=== PATIENT | female | born 1980 | race Caucasian/White ===

== ENCOUNTER 2022-07-21 18:21 | Emergency (ER) | payer SELFPAY ==
--- OUTSIDE RECORDS SUMMARY | 2022-07-21 18:25 | XMS REPORT | Continuity of Care Document ---
:1980 Author Organization [facility] t Address [address] [place] [address] Care Team Providers Name Role Phone Linnea Coley Attending Clinician Unavailable Physician, No Primary or Family Admitting Clinician Unavaila ble Payers Payer Name Policy Type Policy Number Effective Date Expiration Date S ource Problems This patient has no known problems. Allergies, Adverse Reactions, Alerts Allergy Allergy Status Severity Reaction(s) Onset Inactive Treating Comm ents Source Name Type Date Date Clinician No Known DA Active U [facility] Allergie 05-02 [facility] 00:00: [facility] 00 are [place] Medications This patient has no known medications. Procedures This patient has no known procedures. Encounters Start End Encounter Admission Attending Care Care Encounter Source Date/Time Date/Time Type Type Clinicians Facility Department ID 2022-05-02 2022-05-02 Emergency EM SKY Coley [id number] [facility] 05:12:00 08:20:[address] are [place] 2022-05-02 2022-05-02 Emergency EM SKY Coley [id number] [facility] 05:12:00 08:20:00 Linnea 81 [facility] are [place] 2022-05-02 2022-05-02 Emergency EM SKY Coley [id number] [id number] [facility] 05:12:00 05:12:00 Linnea El16 [facility] are [place] Results Test Description Test Time Test Comments Results Result Comments Source URINALYSIS COMPLETE 2022-05-02 07:59:00 Test Item Value Reference Range Interpretation Comme nts UA COLOR (test code = COLU) Colorless YELLOW UA APPEARANCE (test code = CLEAR CLEAR APPU) UA GLUCOSE DIPSTICK (test code NEG MG/DL NEGATIVE = DGLUU) UA BILIRUBIN DIPSTICK (test NEG NEGATIVE code = BILU) UA KETONE DIPSTICK (test code NEG MG/DL NEGATIVE = KETU) UA SPECIFIC GRAVITY (test code 1.007 1.000-1.030 = SGU) UA BLOOD DIPSTICK (test code = 1+ NEGATIVE A JAMES) UA PH DIPSTICK (test code = 7.5 4.5-8.5 BASSAM) UA PROTEIN DIPSTICK (test code NEG MG/DL NEGATIVE = PROU) UA UROBILINOGEN DIPSTICK (test NORMAL EU/dL See_Comment [Automated message] The code = URO) system which ge nerated this result transmit abbi reference range: <=1.0. T he reference range was not u sed to interpret this result as normal/abnormal . UA NITRITE DIPSTICK (test code NEG NEGATIVE = MARY) UA LEUKOCYTE ESTERASE DIPSTICK NEG NEGATIVE (test code = LEUU) UA WBC (test code = WBCU) 0-3 /HPF 0-3 UA RBC (test code = RBCU) 5-10 /HPF 0-3 A UA BACTERIA (test code = BACU) 1+ /HPF NONE SEEN A UA SQUAMOUS CELLS (test code = RARE /HPF NONE-FEW SQU) UA CRYSTALS OTHER (test code = RARE /HPF NONE SEEN CRYU) UA MUCUS (test code = MUCU) RARE /LPF NONE-FEW UR HCG [id number] 07:52:00 Test Item Value Reference Range Interpretation Comments UR HCG QUAL (test code = HCGQLU) NEGATIVE NEGATIVE - CT HEAD/BRAIN W/O [id number] 06:37:00 [facility] : 1980 Sex: FPatient Name: SAIMA SR Unit No: [id number] EXAMS: CPT: [id number] CT HEAD/BRAIN W/O CONT [id number] CT HEAD WITHOUT CONTRAST, 05/02/2022. COMPARISON:None. CLINICAL: Dizziness. Comment: Noncontrast transaxial plus sagittal/coronal reformatted images were obtained. The lateral, third and fourth ventricles appear within normal limits. There is no midline shift, acute intraparenchymal hemorrhage, major territorial infarction or extracerebral fluid collection. The calvarium is intact. There is extensive partial opacification of the paranasal sinuses consistent with pansinusitis. The mastoids are well pneumatized. No air-fluid levels are detected. All CT scans at this facility are performed using dose optimization t echniques including the following: Automated exposure control. IMPRESSION: No evidence of acute intracranial hemorrhage. at 0637 Reported and signed by: Tunde Merino MD CC: Linnea Coley MD Technologist: Abby Momin CTDI: 40.74 DLP: 713.34 Trscr Dt/Tm: 05/02/2022 (0637) by:[email or web address] Orig Print D/T: S: 05/02/2022 (0640) BATCH NO: N/A Name: SAIMA SR [facility] [place] Phys: Linnea Robert [address] [facility] : 1980 Age: 42 Sex: F [facility]argav Levi [facility] [id number] [facility] Exam Date: 05/02/2022 Status: REGER PH: FAX: PAGE 1 Signed Report- CT HEAD/BRAIN W/O [id number] 06:37:00 [facility] : 1980 Sex: FPatient Name: SAIMA SR Unit No: [id number] EXAMS: CPT: [id number] CT HEAD/BRAIN W/O CONT [id number] CT HEAD WITHOUT CONTRAST, 05/02/2022. COMPARISON:None. CLINICAL: Dizziness. Comment: Noncontrast transaxial plussagittal/coronal reformatted images were obtained. The lateral, third and fourth ventricles appear within normal limits. There is no midline shift, acute intraparenchymal hemorrhage, major territorial infarction or extracerebral fluid collection. The calvarium is intact. There is extensive partial opacification of the paranasal sinuses consistent with pansinusitis. The mastoids are well pneumatized.No air-fluid levels are detected. All CT scans at this facility are performed using dose optimization techniques including the following: Automated exposure control. IMPRESSION: No evidence of acute intracranial hemorrhage. at 0637 Reported and signed by: Tunde Merino MD CC: Linnea Coley MD Technologist: Abby Momin CTDI: 40.74DLP: 713.34 Trscr Dt/Tm: 05/02/2022 (0637) by:[email or web address] Orig Print D/T: S: 05/02/2022 (0640) BATCHNO: N/A Name: SAIMA SR [facility] [place] Phys: Linnea Robert [address] [facility] : 1980 Age: 42 Sex: F Bhargav Levi Loc: T.ERS Exam Date: 05/02/2022 Status: DEP ER PH: FAX: PAGE 1 Signed ReportCOMPREHENSIVE METABOLIC [id number] 06:17:00 Test Item Value Reference Range Interpretation Comments SODIUM (test code = 140 mmol/L 136-145 N NA) POTASSIUM (test 3.5 mmol/L 3.4-4.5 N code = K) CHLORIDE (test code 108 mmol/L 98-107 H = CL) CARBON DIOXIDE 22 mmol/l 20-31 N (test code = CO2) GLUCOSE (test code 120 mg/dL 74-106 H = GLU) BLOOD UREA NITROGEN 8 mg/dL 9-23 L (test code = BUN) GLOMERULAR >=60 max >60 The estimated FILTRATION RATE estimate glomerular (test code = GFR) filtration rate is computed usingpatient ra ce, age (>18), sex, and serum creatinin e. If anyof the ne eded data elements a re missing the Laboratory felicitas ot compute an estimation of t he glomerular filtration rate . CREATININE (test 0.70 mg/dL 0.55-1.02 N code = CREAT) TOTAL PROTEIN (test 7.0 g/dL 5.7-8.2 N code = PROT) ALBUMIN (test code 3.8 g/dl 3.4-5.0 N = ALB) CALCIUM (test code 9.1 mg/dL 8.6-10.3 N = CA) BILIRUBIN TOTAL 0.5 mg/dL 0.3-1.2 N (test code = BILT) SGOT/AST (test code 20 U/L 0-34 N = AST) SGPT/ALT (test code 13 U/L 10-49 N = ALT) ALKALINE 84 U/L 46-116 N PHOSPHATASE (test code = ALKP) [id number] 06:17:00 Test Item Value Reference Range Interpretation Comments LIPASE (test code = LIP) 33 U/L 12-53 N [id number] 06:17:00 Test Item Value Reference Range Interpretation Comments TROPONIN-I < 2.5 ng/L 0.0-34.0 N CAUTION: UNITS OF THE (test code = CURRENT TEST ME THODOLOGY TROPI) (ng/L) DIFFERFR OM THE PRIOR TEST METHODOLOG Y (ng/mL) BY A FACTOR OF 100 0.RESULTS FROM DIFFERENT METHODS SHOULD NOT BE C OMPARED TO ONEANOTHER Q UANTITATIVE RESULTS AND URL S MAY VARY BY METHOD. IN OR CHA TO DISTINGUISH ACU TE ELEVATIONS OF HIGH SENSITI VETROPONIN FROM OTHER CLIN ICAL CONDITIONS, THE UNIVERSALDEFINI TION OF MYOCARDIAL INFA RCTION STRESSES CLINIC ALASSESSMENT AND THE NEED FO R SERIAL MEASUREMENTS TO OBSERVE ARISE AND/OR FA LL ABOVE THE UPPER LIMIT OF THE REFERENCERANGE. CONSIDERATION F OR CARDIOLOGY EVALUATION AND DRAWINGTHIRD hs-cTn, INCLUDI NG IF CHANGE IN THE CLINICAL STATUS ORSERIAL hs-cTn s ARE INCREASING, PAR TICULARLY ABOVE THE 99THGENDER-SPEC IFIC PERCENTILE. CBC W/AUTO [id number] 06:00:00 Test Item Value Reference Range Interpretation Comments WHITE BLOOD CELL (test code = WBC) 5.92 K/mm3 5.0-12.0 N RED BLOOD CELL (test code = RBC) 4.49 M/mm3 4.20-5.40 N HEMOGLOBIN (test code = HGB) 12.9 G/DL 12.0-16.0 N HEMATOCRIT (test code = HCT) 38.7 % 34.9-44.5 N MEAN CELL VOLUME (test code = MCV) 86 fL 81-99 N MEAN CELL HGB (test code = MCH) 28.7 PGM 27-31 N MEAN CELL HGB CONCENTRATION (test 33.3 G/DL 33-37 N code = MCHC) RED CELL DISTRIBUTION WIDTH (test 13.5 % 11.6-16.2 N code = RDW) PLATELET COUNT (test code = PLT) 247 K/mm3 130-400 N MEAN PLATELET VOLUME (test code = 10.0 fl 7.4-10.4 N MPV) NEUTROPHIL % (test code = NT%) 49.1 % 43-65 N IMMATURE GRANULOCYTE % (test code 0.2 % 0.0-2.0 N = IG%) LYMPHOCYTE % (test code = LY%) 36.5 % 20.5-45.5 N MONOCYTE % (test code = MO%) 6.6 % 5.5-11.7 N EOSINOPHIL % (test code = EO%) 7.1 % 0.9-2.9 H BASOPHIL % (test code = BA%) 0.5 % 0.2-1.0 N NUCLEATED RBC % (test code = 0.0 % 0-1.0 N NRBC%) NEUTROPHIL # (test code = NT#) 2.91 K/mm3 2.2-4.8 N LYMPHOCYTE # (test code = LY#) 2.16 K/mm3 1.3-2.9 N MONOCYTE # (test code = MO#) 0.39 K/mm3 0.3-0.8 N EOSINOPHIL # (test code = EO#) 0.42 K/MM3 0.0-0.2 H BASOPHIL # (test code = BA#) 0.03 K/mm3 0.0-0.1 N
[2022-07-21] MEDS ORDERED: FENTANYL CITR 100 MCG/2 ML ONE (18:42)
[2022-07-21] MEDS ORDERED: PROMETHAZINE INJ 25 MG/ML AMP ONE (18:42)
[2022-07-21 19:02] LABS: Absolute Lymphocytes (CBC) 1.3 K/uL (0.7-4.9); Lymphocytes % 12.9 % (15.3-44.8); MCV 86.3 fL (80-100)
[2022-07-21 19:18] LABS: ALT/SGPT 26 U/L (12-78); Albumin 3.4 g/dL (3.4-5.0); Alkaline Phosphatase 85 U/L (45-117); BUN Blood Urea Nitrogen 16 mg/dL (7-18); Bicarbonate 25 mmol/L (21-32); Bilirubin Total 0.2 mg/dL (0.2-1.0); Glomerular Filtration Rate 80 ml/min (=/>90); Glucose Level 140 mg/dL (74-106); Protein, Total 7.5 g/dL (6.4-8.2); Sodium Level 138 mmol/L (136-145)
[2022-07-21 19:20] LABS: AST/SGOT 21 U/L (15-37); C-Reactive Protein < 2.90 mg/L (<3.00); Potassium 3.5 mmol/L (3.5-5.1)
--- NOTE | 2022-07-21 19:25 | RAD REPORT ---
EXAM DESCRIPTION: RAD - Knee Left 2 View - 07/21/2022 6:49 pm CLINICAL HISTORY: Knee pain FINDINGS: Comminuted patellar fracture. There is marked distraction of fracture fragments. Patellar dislocation suspected
--- NOTE | 2022-07-21 19:42 | RAD REPORT ---
EXAM DESCRIPTION: CT - Lower Ext Angio - 07/21/2022 7:16 pm CLINICAL HISTORY: Leg pain and swelling. Patellar fracture/dislocation COMPARISON: X-ray July 21, 2022 TECHNIQUE: Computed tomography angiography of the left lower extremity. 100 cc Isovue 370 was admini stered intravenously. Coronal and sagittal reconstruction were performed. MIP 3D reconstruction was performed All CT scans are performed using dose optimization technique as appropriate and may include automated exposure control or mA/KV adjustment according to patient size. FINDINGS: The left common femoral, left superficial femoral, left deep femoral, left popliteal, left posterior tibial, left anterior tibial and left peroneal arteries are normal caliber. No injury visu alized. No soft tissue hematoma. Markedly comminuted patella fracture. Patella is dislocated. IMPRESSION: Markedly comminuted patellar fracture. The patella is dislocated No vascular injury
[2022-07-21 20:00] LABS: SARS-CoV-2 Antigen Rapid Res Negative (Negative)
--- NOTE | 2022-07-21 20:02 | EDPHYS ---
Physician Documentation [facility] Name: Aishwarya Fiore Age: 42 yrs Sex: Female : 1980 Arrival Date: 07/21/2022 Time: 18:23 Bed 2 Private MD: ED Physician Sridhar Hitchcock HPI: 07/21 19:57 This 42 yrs old Female presents to ER via EMS with complaints of Knee Injury. snw 19:57 This 42 yrs old Female presents to ER via EMS with complaints of Knee Injury. snw 19:57 Onset: The symptoms/episode began/occurred suddenly, just prior to arrival. The patient snw has not experienced similar symptoms in the past. The patient has not recently seen a physician. [place] left knee, no other injury, no LOC. Historical: - Allergies: 18:27 No Known Allergies; hb - Immunization history:: Adult Immunizations up to date. - Social history:: Smoking status: Patient denies any tobacco usage or history of. ROS: 19:56 Constitutional: Negative for fever, chills, and weight loss, Eyes: Negative for injury, snw pain, redness, and discharge, ENT: Negative for injury, pain, and discharge, Neck: Negative for injury, pain, and swelling, Cardiovascular: Negative for chest pain, palpitations, and edema, Respiratory: Negative for shortness of breath, cough, wheezing, and pleuritic chest pain, Abdomen/GI: Negative for abdominal pain, nausea, vomiting, diarrhea, and constipation, Back: Negative for injury and pain, : Negative for injury, bleeding, discharge, and swelling, Skin: Negative for injury, rash, and discoloration, Neuro: Negative for headache, weakness, numbness, tingling, and seizure, Psych: Negative for depression, anxiety, suicide ideation, homicidal ideation, and hallucinations. 19:56 MS/extremity: Positive for injury or acute deformity, decreased range of motion, pain, swelling, tenderness, of the left knee. Exam: 18:28 Constitutional: This is a well developed, well nourished patient who is awake, alert, snw and in no acute distress. Head/Face: Normocephalic, atraumatic. Eyes: Pupils equal round and reactive to light, extra-ocular motions intact. Lids and lashes normal. Conjunctiva and sclera are non-icteric and not injected. Cornea within normal limits. Periorbital areas with no swelling, redness, or edema. ENT: Nares patent. No nasal discharge, no septal abnormalities noted. Tympanic membranes are normal and external auditory canals are clear. Oropharynx with no redness, swelling, or masses, exudates, or evidence of obstruction, uvula midline. Mucous membranes moist. Neck: Trachea midline, no thyromegaly or masses palpated, and no cervical lymphadenopathy. Supple, full range of motion without nuchal rigidity, or vertebral point tenderness. No Meningismus. Chest/axilla: Normal chest wall appearance and motion. Nontender with no deformity. No lesions are appreciated. Cardiovascular: Regular rate and rhythm with a normal S1 and S2. No gallops, murmurs, or rubs. Normal PMI, no JVD. No pulse deficits. Respiratory: Lungs have equal breath sounds bilaterally, clear to auscultation and percussion. No rales, rhonchi or wheezes noted. No increased work of breathing, no retractions or nasal flaring. Abdomen/GI: Soft, non-tender, with normal bowel sounds. No distension or tympany. No guarding or rebound. No evidence of tenderness throughout. Back: No spinal tenderness. No costovertebral tenderness. Full range of motion. Skin: Warm, dry with normal turgor. Normal color with no rashes, no lesions, and no evidence of cellulitis. Neuro: Awake and alert, GCS 15, oriented to person, place, time, and situation. Cranial nerves II-XII grossly intact. Motor strength 5/5 in all extremities. Sensory grossly intact. Cerebellar exam normal. Normal gait. Psych: Awake, alert, with orientation to person, place and time. Behavior, mood, and affect are within normal limits. 18:28 Musculoskeletal/extremity: Extremities: grossly normal except: noted in the posterior aspect of left knee and left knee: decreased ROM, pain, swelling, tenderness, unstable, ROM: limited active range of motion due to pain, limited passive range of motion due to pain, in the left knee, Circulation is intact in all extremities. Sensation intact. Vital Signs: 18:23 BP 158 / 95; Pulse 75; Resp 16; Temp 98.1; Pulse Ox 98% on R/A; Pain 8/10; hb 19:39 Pain 2/10; tw5 19:41 BP 127 / 83; Pulse 85; Resp 18; Pulse Ox 99% on R/A; tw5 20:45 Pain 2/10; tw5 20:45 Pain 2/10; tw5 MDM: 18:35 Patient medically screened. snw 19:58 Data reviewed: vital signs, nurses notes. Data interpreted: Pulse oximetry: on room air snw is 99 %. Interpretation: normal. Counseling: I had a detailed discussion with the patient and/or guardian regarding: the historical points, exam findings, and any diagnostic results supporting the discharge/admit diagnosis, radiology results, the need for outpatient follow up, to return to the emergency department if symptoms worsen or persist or if there are any questions or concerns that arise at home. Special discussion: Based on the history and exam findings, there is no indication for further emergent testing or inpatient evaluation. I discussed with the patient/guardian the need to see the orthopedic surgeon for further evaluation of the symptoms. 07/21 18:28 Order name: CBC with Diff; Complete Time: 19:24 snw 07/21 18:28 Order name: Test, Serum; Complete Time: 19:53 snw 07/21 18:28 Order name: XRAY Knee LEFT 2 view; Complete Time: 19:28 snw 07/21 18:28 Order name: CMP; Complete Time: 19:24 snw 07/21 18:28 Order name: CRP; Complete Time: 19:24 snw 07/21 19:11 Order name: SARS RAPID; Complete Time: 20:04 wm 07/21 18:31 Order name: Lower Ext Angio; Complete Time: 19:53 EDMS 07/21 19:55 Order name: Knee Immobilizer; Complete Time: 20:56 snw 07/21 19:55 Order name: Crutches; Complete Time: 20:56 snw Administered Medications: 18:37 Drug: fentaNYL (PF) 25 mcg Route: IVP; Site: right antecubital; hb 19:39 Follow up: Pain 2/10 Adult; Response: No adverse reaction; Pain is decreased; RASS: tw5 Alert and Calm (0) 18:38 Drug: Phenergan (promethazine) 25 mg Route: IM; Site: affected area; hb 19:39 Follow up: Response: No adverse reaction tw5 20:14 Drug: Motrin (ibuprofen) 800 mg Route: PO; ke1 20:45 Follow up: Pain 2/10 Adult; Response: Pain is decreased tw5 20:14 Drug: HYDROcodone-acetaminophen 5 mg-325 mg 1 tabs Route: PO; ke1 20:45 Follow up: Pain 2/10 Adult; Response: Marked relief of symptoms; Pain is decreased tw5 Disposition: 07/22 07:07 Co-signature as Attending Physician, Sridhar Hitchcock MD I agree with the assessment and kdr plan of care. Disposition Summary: 07/21/22 20:01 Discharge Ordered Location: Home snw Condition: Stable snw Diagnosis - MARKEDLY DISPLACED LEFT COMMINUTED PATELLA FRACTURE snw Followup: snw - With: Emergency Department - When: As needed - Reason: Worsening of condition Followup: snw - With: Private Physician - When: 2 - 3 days - Reason: Recheck today's complaints, Continuance of care, Re-evaluation by your physician Discharge Instructions: - Discharge Summary Sheet snw - Crutch Use, Adult snw - How to Use a Knee Immobilizer snw - Patellar Fracture, Adult snw - Patellar Dislocation Surgery, Care After snw - Patellar Dislocation Surgery snw Forms: - Medication Reconciliation Form snw - Thank You Letter snw - Antibiotic Education snw - Prescription Opioid Use snw Prescriptions: - Mobic 7.5 mg Oral Tablet - take 1 tablet by ORAL route every 12 hours take with food; 10 tablet; Refills: snw 0, Product Selection Permitted - Tylenol-Codeine #3 300 mg-30 mg Oral - take 1 tablet by ORAL route 3 times per day; 20 tablet; Refills: 0, Product snw Selection Permitted Signatures: Dispatcher [employer] Sridhar Dubon MD MD kdr Waters, Shelly, PASSENGER RELATIONS REPRESENTATIVE-C PASSENGER RELATIONS REPRESENTATIVE-Csnw Anna Martinez, RN RN Kristen Kirk RN RN keLeatha Myers tw5
--- NOTE | 2022-07-21 20:02 | ER ---
Nurse's Notes [facility] Name: Aishwarya Fiore Age: 42 yrs Sex: Female : 1980 Arrival Date: 07/21/2022 Time: 18:23 Bed 2 Private MD: Diagnosis: MARKEDLY DISPLACED LEFT COMMINUTED PATELLA FRACTURE Presentation: 07/21 18:23 Chief complaint: EMS states: Severe left knee pain after mechanical fall [place]. Coronavirus screen: At this time, the client does not indicate any symptoms associated with coronavirus-19. Ebola Screen: No symptoms or risks identified at this time. Risk Assessment: Do you want to hurt yourself or someone else? Patient reports no desire to harm self or others. Onset of symptoms was July 21, 2022. 18:23 Method Of Arrival: EMS: [facility] 18:23 Acuity: GALINDO 2 hb 18:44 Initial Sepsis Screen: Does the patient meet any 2 criteria? No. Patient's initial hb sepsis screen is negative. Does the patient have a suspected source of infection? No. Patient's initial sepsis screen is negative. Historical: - Allergies: 18:27 No Known Allergies; hb - Immunization history:: Adult Immunizations up to date. - Social history:: Smoking status: Patient denies any tobacco usage or history of. Screenin:28 Abuse screen: Denies threats or abuse. Denies injuries from another. Nutritional hb screening: No deficits noted. Tuberculosis screening: No symptoms or risk factors identified. Fall Risk None identified. Assessment: 08:10 Pain: Complains of pain in left knee Pain currently is 6 out of 10 on a pain scale. ke1 18:42 General: Appears in no apparent distress. uncomfortable, Behavior is calm, cooperative. hb Pain: Pain currently is 8 out of 10 on a pain scale. Neuro: Level of Consciousness is awake, alert, obeys commands, Oriented to person, place, time, situation. Cardiovascular: Patient's skin is warm and dry. Respiratory: Respiratory effort is even, unlabored, Respiratory pattern is regular, symmetrical. GI: No signs and/or symptoms were reported involving the gastrointestinal system. : No signs and/or symptoms were reported regarding the genitourinary system. EENT: No signs and/or symptoms were reported regarding the EENT system. Derm: Skin is pink, warm \\T\\ dry. Musculoskeletal: Swelling left knee swelling Reports left knee pain. 19:41 General: Reports at the bedside states " [place] tw5 walking on the rocks and they were slick and she fell.". Vital Signs: 18:23 BP 158 / 95; Pulse 75; Resp 16; Temp 98.1; Pulse Ox 98% on R/A; Pain 8/10; hb 19:39 Pain 2/10; tw5 19:41 BP 127 / 83; Pulse 85; Resp 18; Pulse Ox 99% on R/A; tw5 20:45 Pain 2/10; tw5 20:45 Pain 2/10; tw5 ED Course: 18:23 Patient arrived in ED. eb 18:25 Anne-Marie Garza [facility]C [facility] snw 18:25 Sridhar Hitchcock MD is Attending Physician. snw 18:27 Triage completed. hb 18:27 Arm band placed on. hb 18:28 Patient has correct armband on for positive identification. hb 18:32 Maintain EMS IV. Dressing intact. Good blood return noted. Site clean \\T\\ dry. Gauge \\T\\ hb site: 20g RAC. 18:51 XRAY Knee LEFT 2 view In Process Unspecified. EDMS 19:07 Leatha Carney is Primary Nurse. tw5 19:17 Lower Ext Angio In Process Unspecified. EDMS 19:50 SARS RAPID Sent. mh5 Administered Medications: 18:37 Drug: fentaNYL (PF) 25 mcg Route: IVP; Site: right antecubital; hb 19:39 Follow up: Pain 2/10 Adult; Response: No adverse reaction; Pain is decreased; RASS: tw5 Alert and Calm (0) 18:38 Drug: Phenergan (promethazine) 25 mg Route: IM; Site: affected area; hb 19:39 Follow up: Response: No adverse reaction tw5 20:14 Drug: Motrin (ibuprofen) 800 mg Route: PO; ke1 20:45 Follow up: Pain 2/10 Adult; Response: Pain is decreased tw5 20:14 Drug: HYDROcodone-acetaminophen 5 mg-325 mg 1 tabs Route: PO; ke1 20:45 Follow up: Pain 2/10 Adult; Response: Marked relief of symptoms; Pain is decreased tw5 Medication: 18:42 VIS not applicable for this client. aidan Outcome: 20:01 Discharge ordered by MD. becerra 20:48 Patient left the ED. tw5 Signatures: Dispatcher [employer] EDAnne-Marie Ch, ABHISHEKC PRODUCE DEPARTMENT MANAGER-[place] Anna Martinez, RN RN Aysha Muñoz 5 Linnea Villarreal Tiffany tw5 Kristen Kirk RN RN ke1
[2022-07-21] MEDS ORDERED: HYDROCODONE/APAP 5/325 MG TAB ONE (20:21)
[2022-07-21] MEDS ORDERED: IBUPROFEN 400 MG TAB ONE (20:21)
[2022-07-21 21:22] VITALS: TEMP 98.1
[2022-07-21 21:28] VITALS: BP 127/83; O2SAT 99
== END 2022-07-21 20:48 | disposition home or self-care (01) ==
LOC: ER 18:21
DX: S82.042A Displaced comminuted fracture of left patella, initial encounter for closed fracture (principal); Z20.822 Contact with and (suspected) exposure to COVID-19
CPT/HCPCS: 36415; 73706; 80053; 84703; 85025; 86140; 87811; 96372; 96374; 99284; J2550; J3010; Q9967